=== PATIENT | female | born 1935 | race Asian ===

== ENCOUNTER 2024-02-01 20:52 | Emergency (ER) | payer BC, MEDICAID ==
[~2024-02-01] VITALS: Ht 147.3 cm; Wt 54.4 kg
[2024-02-01 20:58] VITALS: BP_SYST 195; PULSE 69; RESP 19; TEMP 97.3; O2SAT 97
[2024-02-01] MEDS: hydrALAZINE HCL 20 MG/ML VIAL IVP ONE (21:59)
[2024-02-01] MEDS ORDERED: AMLO5TAB4 PO (23:42)
[2024-02-01 23:53] VITALS: BP_SYST 162; PULSE 74; RESP 26; TEMP 97.4; O2SAT 96
== END 2024-02-01 23:53 | disposition home or self-care (01) ==
LOC: EDBD 20:52 → SED 20:52
DX: U07.1 COVID-19 (principal); I10 Essential (primary) hypertension; E11.9 Type 2 diabetes mellitus without complications
CPT/HCPCS: 99283; 96374; J0360